=== PATIENT | female | born 1985 | race Caucasian/White ===

== ENCOUNTER → 2021-09-07 | Emergency (ER) | payer OTHER ==
[~2021-09-07] MED LIST: COLACE 100MG C100 MG PO; DECADRON6 MG PO; LODINE CAP 300300 MG PO; PROVENTIL HFA6.7 GM INH; ZOFRAN ODT 4 MG4 MG PO
== END | disposition home or self-care (01) ==
LOC: ER1 22:52
DX: U07.1 COVID-19 (principal)
CPT/HCPCS: 99283